=== PATIENT | female | born 1975 | race Caucasian/White ===

== ENCOUNTER 2018-01-29 18:34 | Emergency (ER) | payer SELFPAY ==
[~2018-01-29] VITALS: Ht 165.1 cm; Wt 133.8 kg
[2018-01-29 18:42] VITALS: BP 142/88
--- NOTE | 2018-01-29 19:42 | PHYS DOC ---
Past Medical History Past Medical History: No Pertinent History Past Surgical History: No Surgical History Alcohol Use: None Drug Use: None Adult General Chief Complaint Chief Complaint: ANKLE PROBLEM HPI HPI Patient is a 42 year old female who presents with painful left ankle and right knee after she stepped into a pothole in a department for parking lot and fell. She states that she landed on her knee and twisted the ankle. She was able to stand up immediately after the incident. She denies loss of consciousness or any other injury. She states that it is very painful to bear weight. She declines pain medication in the emergency department. Review of Systems Review of Systems Constitutional: Denies fever or chills [] Eyes: Denies change in visual acuity, redness, or eye pain [] HENT: Denies nasal congestion or sore throat [] Respiratory: Denies cough or shortness of breath [] Cardiovascular: No additional information not addressed in HPI [] GI: Denies abdominal pain, nausea, vomiting, bloody stools or diarrhea [] : Denies dysuria or hematuria [] Musculoskeletal: See history of present illness Integument: Denies rash or skin lesions [] Neurologic: Denies headache, focal weakness or sensory changes [] Endocrine: Denies polyuria or polydipsia [] All other systems were reviewed and found to be within normal limits, except as documented in this note. Allergies Allergies Allergies Coded Allergies Type Severity Reaction Last Updated Verified No Known Drug Allergies 01/29/18 No Physical Exam Physical Exam Constitutional: Well developed, well nourished, no acute distress, non-toxic appearance. [] HENT: Normocephalic, atraumatic, bilateral external ears normal, oropharynx moist, no oral exudates, nose normal. [] Eyes: PERRLA, EOMI, conjunctiva normal, no discharge. [] Neck: Normal range of motion, no tenderness, supple, no stridor. [] Cardiovascular:Heart rate regular rhythm, no murmur [] Lungs & Thorax: Bilateral breath sounds clear to auscultation [] Abdomen: Bowel sounds normal, soft, no tenderness, no masses, no pulsatile masses. [] Skin: Warm, dry, no erythema, no rash. [] Back: No tenderness, no CVA tenderness. [] Extremities: Tenderness with mild edema to the lateral malleolus, tenderness to the right knee with ecchymosis noted, no cyanosis, no clubbing, ROM intact Neurologic: Alert and oriented X 3, normal motor function, normal sensory function, no focal deficits noted. [] Psychologic: Affect normal, judgement normal, mood normal. [] Current Patient Data Vital Signs Vital Signs Date Time Temp Pulse Resp B/P (MAP) Pulse Ox O2 Delivery O2 Flow Rate FiO2 01/29/18 18:42 98.2 88 16 142/88 (106) 98 Room Air 98.2 EKG EKG [] Radiology/Procedures Radiology/Procedures []Radiology was interpreted by Dr. Vargas in the emergency department. No acute bony abnormality was noted. Course & Med Decision Making Course & Med Decision Making Pertinent Labs and Imaging studies reviewed. (See chart for details) []The patient was placed in an Peewee wrap for comfort. Neurovascular status was intact post-wrap application. Dragon Disclaimer Dragon Disclaimer This electronic medical record was generated, in whole or in part, using a voice recognition dictation system. Departure Departure Impression: Primary Impression: Ankle sprain Additional Impression: Knee contusion Disposition: 01 HOME, SELF-CARE Condition: STABLE Referrals: NO PCP (PCP) Patient Instructions: Ankle Sprain, Contusion, RICE - Routine Care for Injuries Additional Instructions: You may take ibuprofen or Tylenol for pain. Follow-up with your primary care provider for a possible referral to orthopedics if not improving in one week. If worsening return to the emergency department. Problem Qualifiers CARMEL CURTIS APRN Jan 29, 2018 19:42
--- NOTE | 2018-01-29 20:48 | RAD ---
Right knee 3 views, left ankle 3 views. HISTORY: Patient fell, twisted ankle, landed on knee Right knee 3 views of the right knee show no evidence of an acute fracture or osseous abnormality. There is no joint effusion. Left ankle 3 views were taken of the left ankle. There is no fracture or acute osseous abnormality. There is a bone island in the tibia. IMPRESSION: 1. No fracture noted in the left ankle. 2. No fracture noted in the right knee Electronically signed by: Lion Ernst MD (01/29/2018 8:44 PM) [facility] [id number]
--- NOTE | 2018-01-29 20:48 | RAD ---
Right knee 3 views, left ankle 3 views. HISTORY: Patient fell, twisted ankle, landed on knee Right knee 3 views of the right knee show no evidence of an acute fracture or osseous abnormality. There is no joint effusion. Left ankle 3 views were taken of the left ankle. There is no fracture or acute osseous abnormality. There is a bone island in the tibia. IMPRESSION: 1. No fracture noted in the left ankle. 2. No fracture noted in the right knee Electronically signed by: Lion Ernst MD (01/29/2018 8:44 PM) [id number]
== END 2018-01-29 19:55 | disposition home or self-care (01) ==
LOC: ER 18:34
DX: S93.402A Sprain of unspecified ligament of left ankle, initial encounter (principal); S80.01XA Contusion of right knee, initial encounter; W01.0XXA Fall on same level from slipping, tripping and stumbling without subsequent striking against object, initial encounter; Y93.89 Activity, other specified; Y92.481 Parking lot as the place of occurrence of the external cause; Y99.8 Other external cause status
CPT/HCPCS: 73562; 73610; 99284